=== PATIENT | male | born 1945 | race Caucasian/White ===

== ENCOUNTER 2020-03-26 09:35 | Emergency (ER) | payer MEDICARE, SELFPAY ==
--- NOTE | 2020-03-26 09:42 | W.ED.GENADLT ---
HPI - General Adult General: Chief complaint: Weakness Stated complaint: WEAKNESS; DIZZY Time Seen by Provider: 03/26/20 09:37 Source: patient Mode of arrival: EMS History of Present Illness: HPI narrative: 74-year-old male brought in by EMS with complaints of generalized weakness, dizziness, and decreased p.o. intake over the past 3 to 4 weeks. No fever or cough. She reports frequent vomiting, immediately after trying to eat anything. The only thing he can keep down, he says, is tiny amounts of banana/strawberry smoothie from [employer]. 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 Has had significant weight loss, records show loss of approximately 20kg in the past 4 months. Denies night sweats. No hematemesis. He does not think that food is getting stuck in his esophagus, but he does vomit almost immediately after trying to eat something, even though he continues to feel hungry all the time. He does experience heartburn and acid reflux, and during the night he has to wake up frequently because he is choking on his saliva. He does not he is concerned that he has Covid, and feels like he is dying . Associated symptoms: Reports malaise, nausea and vomiting; Deny chest pain Review of Systems General: Reports: 10 or more systems reviewed and unremarkable except in HPI and below Const: Reports: change in appetite, change in weight, fatigue and malaise; Denies: fever(s) or chills ENMT: Reports: hoarseness; Denies: odynophagia, mouth pain or oral sores Card: Reports: lightheadedness and acrocyanosis; Denies: chest pain or irregular heart rhythm Resp: Reports: productive cough; Denies: non-productive cough, wheezing, pain on inspiration, hemoptysis or chest congestion GI: Reports: abdominal pain, nausea, vomiting, dysphagia, heartburn and GI cramping; Denies: coffee ground emesis, diarrhea, constipation or bloating : Reports: oliguria Musc: Reports: extremity pain, muscle cramps, muscle weakness and decrease in muscle mass Skin/Breast: Reports: dry skin; Denies: erythema, sores, new lesions or non-healing lesions Neuro: Reports: numbness in extremities, difficulty walking, frequent falls and dizziness Psych: Reports: anxiety, depression, hopelessness and change in appetite Endo: Reports: tired all the time Marcelo/Lymph: Denies: easy bruising, easy bleeding, enlarged lymph nodes or tender lymph nodes All/Imm: Denies: throat swelling or tongue swelling Physical Exam Const: COMMON NORMALS: patient oriented x3 and alert GENERAL APPEARANCE: cooperative, anxious, ill appearing and frail appearing; not in distress NUTRITIONAL APPEARANCE: underweight ORIENTATION/CONSCIOUSNESS: Yes awake, Yes oriented to person, Yes oriented to place and Yes oriented to time HENMT: COMMON NORMALS: normocephalic and atraumatic HEAD & SCALP: normocephalic and atraumatic FACE & SINUS: normal facial exam and face symmetric Eye: COMMON NORMALS: Equal, round and reactive pupils present and EOMs intact bilaterally PUPIL: Yes Equal, round and reactive pupils present EOM: Yes EOM abnormal Neck/C-Spine: COMMON NORMALS: Thyroid normal GENERAL: Yes normal visual inspection, Yes trachea midline, No anterior neck swelling, No lymphadenopathy and No tender THYROID: Thyroid normal Lymph: LYMPHATIC: no lymphadenopathy noted Chest: CHEST: Yes abnormal inspection of the chest barrel chest, No mass, No tenderness, No Ecchymosis present and No Pacemaker present Resp: COMMON NORMALS: normal respiratory effort, No use of accessory muscles and clear to auscultation bilaterally EFFORT & INSPECTION: Yes able to speak in complete sentences, Yes symmetric chest movement, No tachypneic and No respiratory distress AUSCULTATION: clear to auscultation bilaterally Cardio: COMMON NORMALS: regular rate, regular rhythm, S1 normal heart sound present and S2 normal heart sound present JUGULAR VENOUS DISTENTION: no JVD RATE: regular rate RHYTHM: regular rhythm HEART SOUNDS: S1 normal heart sound present and S2 normal heart sound present BRUITS: no abdominal aortic bruits GI: COMMON NORMALS: Soft to palpation INSPECTION: Yes normal to inspection, No abdominal wall ecchymosis and No abdominal distension AUSCULTATION: Yes normoactive bowel sounds PALPATION: Yes Soft to palpation, Yes Tenderness to palpation present (GI) Details: LUQ and RUQ, No Guarding due to palpation present (GI), No Rigid due to palpation and No Ascites present Extremity: COMMON NORMALS: no pedal edema GENERAL: No calf tenderness, No carpopedal spasm and Yes pulses abnormal (diminished bilateral LE) Neuro: COMMON NORMALS: patient oriented x3 SENSORIUM/ORIENTATION: Yes oriented to person, Yes oriented to place and Yes oriented to time Course Vital Signs: Vital signs: Vital Signs Temperature 98.0 F 03/26/20 09:45 Pulse Rate 90 03/26/20 14:57 Respiratory Rate 20 H 03/26/20 14:57 Blood Pressure 137/78 03/26/20 14:57 Pulse Oximetry 100 03/26/20 14:57 MDM - General Adult MDM Narrative: Medical decision making narrative: 74-year-old male with progressive weight loss, difficulty swallowing solids and liquids over the past month. Able to tolerate secretions while sitting up, otherwise is ill-appearing and dehydrated. Mild leukocytosis Glucose elevated at 360, otherwise CMP without any other acute abnormalities. CT shows thickening of the distal esophagus and GE junction. Secretions in the esophagus consistent with dysphagia. Spoke with the on-call hospitalist here, Dr Fortune, she wanted me to check with the surgeon to see if inpatient endoscopy would be possible. I spoke with Dr. Jim, general surgeon, he recommended discussing the case with gastroenterology at a higher level of care, as he would not be able to perform esophageal dilation here if it were necessary. Called [facility] to request GI consult; Patient accepted at [facility], accepting physician Dr. Perry. We will proceed to arrange transfer by ground. Differential Diagnosis: Differential Diagnosis: Esophageal obstruction, neoplasm, ulcer, gastritis, dysphagia, achalasia, Medical Records: Attestation: I reviewed the patient's medical records. Lab Data: Attestation: I reviewed the patient's lab results. Labs: Lab Results 03/26/20 03/26/20 03/26/20 Range/Units 09:48 09:48 09:48 WBC 16.3 H (4.0-10.0) 10^3/ uL RBC 5.31 H (4.1-5.3) 10^6/u L Hgb 15.5 (11.7-16.6) g/dL Hct 46.7 (42.0-52.0) % MCV 87.9 (80-94) fL MCH 29.2 (28.0-34.0) pg MCHC 33.2 (30.0-36.0) g/dL RDW 12.1 (12.1-15.1) % Plt Count 212 (130-400) 10^3/c mm MPV 10.7 H (7.4-10.4) fL Neut % (Auto) 85.1 % Lymph % (Auto) 8.2 % [place] % (Auto) 5.3 % Eos % (Auto) 0.2 % Baso % (Auto) 0.3 % Neut # (Auto) 13.87 H (1.8-7.7) 10^3/u L Lymph # (Auto) 1.3 (0.8-4.8) 10^3/u L [place] # (Auto) 0.9 (0.2-0.9) 10^3/u L Eos # (Auto) 0.0 (0.0-0.8) 10^3/u L Baso # (Auto) 0.1 (0.0-0.1) 10^3/u L Nucleated RBC % (a uto) 0 % Nucleated RBCs # 0.0 /100WBC Sodium 135 L (136-145) mmol/L Potassium 4.7 (3.5-5.1) mmol/L Chloride 96 L (98-107) mmol/L Carbon Dioxide 27 (22-29) mmol/L Anion Gap 16.7 (5-19) BUN 18 (8-23) mg/dL Creatinine 0.8 (0.7-1.2) mg/dL GFR Calculation Not Reportable Glucose 360 H (65-115) mg/dL Calculated Osmolal ity 296 H (285-295) mOsm/k g Calcium 9.4 (8.5-10.5) mg/dL Magnesium 1.9 (1.7-2.3) mg/dL Total Bilirubin 0.9 (0.15-1.2) mg/dL AST 14 (0-40) U/L ALT 9 (0-41) U/L Alkaline Phosphata se 155 H (40-130) IU/L Troponin T Gen 5 n g/L 43 H (0-15) ng/L Total Protein 6.1 L (6.6-8.7) g/dL Albumin 3.6 (3.5-5.2) g/dL Globulin 2.5 (1.3-4.6) g/dL Urine Color (Yellow) Urine Appearance (CLEAR) Urine pH (5-7) Ur Specific Gravit y (1.005-1.030) Urine Protein (Negative) Urine Glucose (UA) (Normal) Urine Ketones (Negative) Urine Blood (Negative) Urine Nitrate (Negative) Urine Bilirubin (Negative) Urine Urobilinogen (Negative) mg/dL Ur Leukocyte Michelle ase (Negative) Urine RBC (0-2) /hpf Urine WBC (0-5) /hpf Ur Squamous Epith Cells (0-5) /hpf Amorphous Sediment /hpf Urine Bacteria (NONE) /hpf Hyaline Casts /lpf Urine Mucus /hpf Urine Sperm /hpf SARS-CoV-2 Ag (Rap id) (Negative) 03/26/20 03/26/20 Range/Units 11:00 12:25 WBC (4.0-10.0) 10^3/ uL RBC (4.1-5.3) 10^6/u L Hgb (11.7-16.6) g/dL Hct (42.0-52.0) % MCV (80-94) fL MCH (28.0-34.0) pg MCHC (30.0-36.0) g/dL RDW (12.1-15.1) % Plt Count (130-400) 10^3/c mm MPV (7.4-10.4) fL Neut % (Auto) % Lymph % (Auto) % [place] % (Auto) % Eos % (Auto) % Baso % (Auto) % Neut # (Auto) (1.8-7.7) 10^3/u L Lymph # (Auto) (0.8-4.8) 10^3/u L [place] # (Auto) (0.2-0.9) 10^3/u L Eos # (Auto) (0.0-0.8) 10^3/u L Baso # (Auto) (0.0-0.1) 10^3/u L Nucleated RBC % (a uto) % Nucleated RBCs # /100WBC Sodium (136-145) mmol/L Potassium (3.5-5.1) mmol/L Chloride (98-107) mmol/L Carbon Dioxide (22-29) mmol/L Anion Gap (5-19) BUN (8-23) mg/dL Creatinine (0.7-1.2) mg/dL GFR Calculation Glucose (65-115) mg/dL Calculated Osmolal ity (285-295) mOsm/k g Calcium (8.5-10.5) mg/dL Magnesium (1.7-2.3) mg/dL Total Bilirubin (0.15-1.2) mg/dL AST (0-40) U/L ALT (0-41) U/L Alkaline Phosphata se (40-130) IU/L Troponin T Gen 5 n g/L (0-15) ng/L Total Protein (6.6-8.7) g/dL Albumin (3.5-5.2) g/dL Globulin (1.3-4.6) g/dL Urine Color Straw (Yellow) Urine Appearance Clear (CLEAR) Urine pH 5 (5-7) Ur Specific Gravit y 1.015 (1.005-1.030) Urine Protein Trace (Negative) Urine Glucose (UA) 4+ H (Normal) Urine Ketones 1+ H (Negative) Urine Blood 2+ H (Negative) Urine Nitrate Negative (Negative) Urine Bilirubin Neg (Negative) Urine Urobilinogen Norm (Negative) mg/dL Ur Leukocyte Michelle ase Negative (Negative) Urine RBC 0-4 H (0-2) /hpf Urine WBC None (0-5) /hpf Ur Squamous Epith Cells Rare (0-5) /hpf Amorphous Sediment 1+ /hpf Urine Bacteria Trace (NONE) /hpf Hyaline Casts 5-10 H /lpf Urine Mucus 1+ /hpf Urine Sperm 1+ /hpf SARS-CoV-2 Ag (Rap id) Negative (Negative) EKG Data^: EKG 1: Attestation: I personally reviewed and interpreted this EKG as follows: EKG interpretation date: 03/26/20 EKG interpretation time: 10:15 Prior EKG tracings: not available for review Interpretation: Sinus rhythm, rate 83 CT 190, QRS 147, QTc 421 Right axis deviation Right bundle branch block No acute ST segment elevation or depression. Computer generated interpretation: Chest X-Ray 03/26/20 10:00 IMPRESSION: No evidence for acute cardiopulmonary disease. Chest/Abdomen/Pelvis CT 03/26/20 10:32 IMPRESSION: Colonic constipation is present. COMMENTS: Consistent with the [employer]'s Incidental Findings Committee white paper (J Am Liat Radiol 2018): Any incidental renal lesion less than 1 cm or classified as too small to characterize, or any incidental cystic renal lesion characterized as simple-appearing, is likely benign. No follow-up imaging is recommended for these lesions per consensus recommendations based on imaging criteria. Radiation Dose CTDIVOL = (mGy): DLP = 1050.64~1050.64 (mGy-cm) Discharge Plan Discharge Patient Disposition: er Intermediate Care Fac Clinical Impression: Esophageal abnormality, Obstruction, esophagus, Dehydration determined by examination, Excessive weight loss Malnutrition Qualifiers: Malnutrition type: protein-calorie malnutrition Protein-calorie malnutrition severity: moderate Qualified Code(s): E44.0 - Moderate protein-calorie malnutrition Condition: Stable Prescriptions: No Action No Known Home Medications RF: 0 Discharge Orders: Transfer Out of Facility (Order); Ordered 03/26/20 Ordered By: Eva Reeves Referrals: Gosia Hubbard DO [Primary Care Provider] - Coding Level of Care Code ED Cleaner And Trimmer for Chg Fwd Exam Comprehensive
--- NOTE | 2020-03-26 09:44 | ECG_ITS ---
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 Measurements Intervals [place] Rate: 83 P: 63 ND: 190 QRS: 112 QRSD: 147 T: 76 QT: 381 QTc: 449 Interpretive Statements SINUS RHYTHM RIGHT BUNDLE BRANCH BLOCK [120+ ms QRS DURATION, UPRIGHT V1, 40+ ms S IN I/aVL/V4/V5/V6] LEFT POSTERIOR FASCICULAR BLOCK [QRS AXIS > 109, INFERIOR Q] No previous ECG available for comparison Electronically Signed On 03-27-2020 16:55:24 [employer] by Jose Alvarenga M.D. [id number]
[2020-03-26 09:45] VITALS: BP 136/66; PULSE 91; RESP 18; TEMP 36.7; O2SAT 100; BMI 16.2
[2020-03-26 09:59] LABS: Basophils # 0.1 10^3/uL (0.0-0.1); Basophils % 0.3 %; Eosinophils % 0.2 %; Hematocrit 46.7 % (42.0-52.0); Hemoglobin 15.5 g/dL (11.7-16.6); Lymphocytes # 1.3 10^3/uL (0.8-4.8); Lymphocytes % 8.2 %; Mean Corpuscular HGB Conc 33.2 g/dL (30.0-36.0); Mean Corpuscular Hemoglobin 29.2 pg (28.0-34.0); Mean Corpuscular Volume 87.9 fL (80-94); Mean Platelet Volume 10.7 fL (7.4-10.4); Monocytes # 0.9 10^3/uL (0.2-0.9); Monocytes % 5.3 %; Neutrophils # 13.87 10^3/uL (1.8-7.7); Neutrophils % 85.1 %; Nucleated Red Blood Cells % 0 %; Platelet Count 212 10^3/cmm (130-400); Red Blood Count 5.31 10^6/uL (4.1-5.3); Red Cell Distribution Width 12.1 % (12.1-15.1); White Blood Count 16.3 10^3/uL (4.0-10.0)
--- NOTE | 2020-03-26 10:00 | XRR_ITS ---
PROCEDURE INFORMATION: Exam: XR Chest, 1 View Exam date and time: 03/26/2020 10:01 AM Age: 74 years old Clinical indication: Other: Weight loss; Additional info: Weight loss, dizzy TECHNIQUE: Imaging protocol: XR of the chest Views: 1 view. COMPARISON: No relevant prior studies available. FINDINGS: Lungs: There are pulmonary parenchymal calcifications consistent with remote granulomatous organism exposure. Pleural space: Unremarkable. No pleural effusion. No pneumothorax. Heart/Mediastinum: Unremarkable. No cardiomegaly. Bones/joints: Generalized osteopenia. XR/XR chest 1V portable [id number] IMPRESSION: No evidence for acute cardiopulmonary disease.
[2020-03-26] MEDS: lactated ringers 1,000 ML 999 ML IV (10:04)
[2020-03-26 10:24] LABS: Alanine Aminotransferase 9 U/L (0-41); Albumin Level 3.6 g/dL (3.5-5.2); Alkaline Phosphatase 155 IU/L (40-130); Anion Gap 16.7 (5-19); Aspartate Amino Transferase 14 U/L (0-40); Blood Urea Nitrogen 18 mg/dL (8-23); Calcium 9.4 mg/dL (8.5-10.5); Carbon Dioxide 27 mmol/L (22-29); Chloride 96 mmol/L (98-107); Globulin 2.5 g/dL (1.3-4.6); Glucose 360 mg/dL (65-115); Magnesium 1.9 mg/dL (1.7-2.3); Osmolality Calculated 296 mOsm/kg (285-295); Potassium 4.7 mmol/L (3.5-5.1); Sodium 135 mmol/L (136-145); Total Bilirubin 0.9 mg/dL (0.15-1.2); Total Protein 6.1 g/dL (6.6-8.7)
[2020-03-26 10:26] LABS: Troponin T (5th) Once 43 ng/L (0-15)
--- NOTE | 2020-03-26 10:32 | CTR_ITS ---
PROCEDURE INFORMATION: Exam: CT Chest With Contrast; Diagnostic Exam date and time: 03/26/2020 11:12 AM Age: 74 years old Clinical indication: Abdominal pain; Additional info: Weight loss, dysphagia, vomiting, abdominal pain TECHNIQUE: Imaging protocol: Diagnostic computed tomography of the chest with intravenous contrast. Radiation optimization: All CT scans at this facility use at least one of these dose optimization techniques: automated exposure control; mA and/or kV adjustment per patient size (includes targeted exams where dose is matched to clinical indication); or iterative reconstruction. Contrast material: OMNI 300; Contrast volume: 95 ml; Contrast route: INTRAVENOUS (IV); COMPARISON: CR (CHEST, ) 03/26/2020 10:14 AM RADIATION DOSE METRICS: Total DLP (mGy-cm): 1050.64 FINDINGS: Thyroid: There are heterogeneous lesions with calcifications in the bilateral thyroid lobes the larger of which is in the left thyroid lobe measuring 2.6 cm in AP dimension. Lungs: There are pulmonary parenchymal calcifications consistent with remote granulomatous organism exposure. Pleural space: Unremarkable. No pneumothorax. No pleural effusion. Heart: Unremarkable. No cardiomegaly. No pericardial effusion. Mediastinal space: There is mucosal thickening of the distal esophagus and gastroesophageal junction. Secretions are present in the esophagus consistent with dysphagia. Aorta: Unremarkable. No aortic aneurysm. Lymph nodes: Unremarkable. No enlarged lymph nodes. Bones/joints: There are degenerative changes in the visualized spine. Generalized osteopenia. Soft tissues: There are benign-appearing soft tissue calcifications. IMPRESSION: 1. There is mucosal thickening of the distal esophagus and gastroesophageal junction. Differential includes esophagitis/gastritis versus neoplasm. Secretions are present in the esophagus consistent with dysphagia. 2. Generalized osteopenia. COMMENTS: Consistent with the [employer]'s Incidental Findings Committee white paper (J Am Liat Radiol 2015): In patients aged 35 years and older with an incidental thyroid nodule equal to or greater than 1.[address], MRI or extrathyroidal US, further evaluation with dedicated thyroid US is recommended for patients with normal life expectancy and without comorbidities. For smaller nodules without suspicious features, no further evaluation or follow up is recommended. PROCEDURE INFORMATION: Exam: CT Abdomen And Pelvis With Contrast Exam date and time: 03/26/2020 11:12 AM Age: 74 years old Clinical indication: Abdominal pain; Additional info: Weight loss, dysphagia, vomiting, abdominal pain TECHNIQUE: Imaging protocol: Computed tomography of the abdomen and pelvis with intravenous contrast. Radiation optimization: All CT scans at this facility use at least one of these dose optimization techniques: automated exposure control; mA and/or kV adjustment per patient size (includes targeted exams where dose is matched to clinical indication); or iterative reconstruction. Contrast material: OMNI 300; Contrast volume: 95 ml; Contrast route: INTRAVENOUS (IV); COMPARISON: CR (CHEST, ) 03/26/2020 10:14 AM RADIATION DOSE METRICS: Total DLP (mGy-cm): 1050.64 FINDINGS: Mediastinal space: There is mucosal thickening of the distal esophagus and gastroesophageal junction. Liver: Incidental splenic and hepatic calcified granulomata. Gallbladder and bile ducts: Normal. No calcified stones. No ductal dilation. Pancreas: Normal. No ductal dilation. Spleen: Normal. No splenomegaly. Adrenal glands: Normal. No mass. Kidneys and ureters: 19 mm right renal cyst has benign features. Follow-up is not necessary. Stomach and bowel: Colonic constipation is present. Appendix: A normal appendix is identified. Intraperitoneal space: Unremarkable. No free air. No significant fluid collection. Vasculature: Calcified plaque is present within multiple vascular structures. Lymph nodes: Unremarkable. No enlarged lymph nodes. Urinary bladder: Unremarkable as visualized. Reproductive: Unremarkable as visualized. Bones/joints: Chronic defects are present through the bilateral L5 pars interarticularis. Grade 1 spondylolisthesis at L5-S1. Multilevel lumbar disc bulges contribute to canal and bilateral neural foraminal narrowing. Mild upper lumbar dextroscoliosis. There are degenerative changes across the hip joints. Soft tissues: Unremarkable. CT/CT chest abd pel w con* IMPRESSION: Colonic constipation is present. COMMENTS: Consistent with the [employer]'s Incidental Findings Committee white paper (J Am Liat Radiol 2018): Any incidental renal lesion less than 1 cm or classified as too small to characterize, or any incidental cystic renal lesion characterized as simple-appearing, is likely benign. No follow-up imaging is recommended for these lesions per consensus recommendations based on imaging criteria. Radiation Dose CTDIVOL = (mGy): DLP = 1050.64~1050.64 (mGy-cm)
[2020-03-26 11:01] VITALS: BP 163/79; PULSE 95; RESP 16; O2SAT 100
[2020-03-26] MEDS: iohexol 300 mg/mL 100 mL Btl IV (11:13)
[2020-03-26 11:26] LABS: Bilirubin Urine Neg (Negative); Blood Urine 2+ (Negative); Glucose Urine UA 4+ (Normal); Ketones Urine 1+ (Negative); Leukocyte Esterase Urine Negative (Negative); Nitrate Urine Negative (Negative); Protein Urine Trace (Negative); Specific Gravity, Urine 1.015 (1.005-1.030); Urine Appearance Clear (CLEAR); Urine Color Straw (Yellow); Urobilinogen Urine Norm (Negative); pH Urine 5 (5-7)
[2020-03-26 11:36] LABS: Amorphous Sediment Urine 1+ /hpf; Bacteria Urine TRACE /hpf; Mucus Urine 1+ /hpf; RBC Urine 0-4 /hpf (0-2); Sperm Urine 1+ /hpf; Squamous Epithelial Cell Urine RARE /hpf (0-5)
[2020-03-26 11:38] LABS: Add Urine Culture? No
[2020-03-26 12:00] VITALS: BP 171/100; PULSE 90; RESP 16; O2SAT 98
--- NOTE | 2020-03-26 12:17 | ECG_ITS ---
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 Measurements Intervals [place] Rate: 62 P: 85 MT: 106 QRS: 67 QRSD: 85 T: 63 QT: 450 QTc: 458 Interpretive Statements SINUS RHYTHM WITH MARKED SINUS ARRHYTHMIA WITH SHORT MT INTERVAL SEPTAL MYOCARDIAL INFARCTION , OF INDETERMINATE AGE [40+ ms Q WAVE IN V1/V2] No previous ECG available for comparison Electronically Signed On 03-27-2020 16:55:14 [employer] by Jose Alvarenga M.D. [id number]
[2020-03-26] MEDS: pantoprazole 40 MG in sodium chloride 0.9% (plus) 100 ML 20 MG IV (12:36)
[2020-03-26 12:40] VITALS: BP 157/68; PULSE 75; RESP 16; O2SAT 95
[2020-03-26 12:57] LABS: SARS Covid-2 Antigen Negative (Negative)
[2020-03-26 14:57] VITALS: BP 137/78; PULSE 90; RESP 20; O2SAT 100
[2020-03-26 15:53] LABS: Troponin T (5th) Once 37 ng/L (0-15)
[2020-03-26 16:41] VITALS: BP 137/78; PULSE 90; RESP 20; O2SAT 100
== END 2020-03-26 16:42 | disposition intermediate care facility (04) ==
PROVIDERS: Emergency Provider Family Medicine; PCP Family Medicine
DX: E44.0 Moderate protein-calorie malnutrition (principal); K22.2 Esophageal obstruction; E86.0 Dehydration; R63.4 Abnormal weight loss
CPT/HCPCS: 12345; 36415; 51701; 71045; 71260; 74177; 80053; 81001; 83735; 84484; 85025; 87426; 93005; 96365; 96366; 99282; 99285; C9113; Q9967

== ENCOUNTER → 2020-09-13 13:58 | Outpatient (BNVA) | payer OTHER, SELFPAY | PROVIDERS: PCP Family Medicine; Referring Provider Emergency Medicine Emergency Medical Services; Visit Provider Urology | DX: R97.20 Elevated prostate specific antigen [PSA] (principal) | CPT/HCPCS: 84153 ==

== ENCOUNTER 2020-10-25 12:24 | Emergency (ER) | payer OTHER, SELFPAY ==
[2020-10-25 13:27] VITALS: BP 91/60; PULSE 98; RESP 18; TEMP 36.3; O2SAT 99; BMI 20.3
--- NOTE | 2020-10-25 20:29 | ED_ITS ---
HPI - General Adult General: Chief complaint: General Medical Stated complaint: THROAT PAIN Time Seen by Provider: 10/25/20 20:14 History of Present Illness: HPI narrative: Patient is a 74-year-old male comes to the ED with throat pain. Patient says he has a history of esophageal varices that were repaired a few years ago. He says he has been having the symptoms for the past couple years. Denies a sore throat or pain when he swallows. He states he is able to eat and drink, but sometimes he has some nausea and vomiting. He also reports that he feels like some times when he eats something to get stuck down in his esophagus. He denies any bloody cough or bloody emesis. He takes famotidine to help with his acid reflux. Associated symptoms: Deny chest pain, dyspnea, headache(s), nausea, rash, palpitations or vomiting Review of Systems Const: Denies: fever(s), chills or fatigue Eyes: Denies: change in vision or eye discomfort ENMT: Reports: throat pain; Denies: odynophagia, nasal discharge or nasal congestion Card: Denies: chest pain, palpitations, edema, swelling of feet/ankles, dyspnea on exertion or orthopnea Resp: Denies: dyspnea, productive cough or non-productive cough GI: Reports: heartburn; Denies: abdominal pain, nausea, vomiting, diarrhea, constipation or hematochezia : Denies: flank pain, difficulty urinating, dysuria or hematuria Musc: Denies: neck pain, back pain or extremity swelling Skin/Breast: Denies: rash or new lesions Neuro: Denies: headache(s), numbness in extremities or weakness in extremities PFS ED PFSH: Medical History Elevated PSA Family History Father , AT AGE 90 CHF (congestive heart failure) Mother , AT AGE 78 CHF (congestive heart failure) Cancer Social History Smoking and tobacco status: former smoker Alcohol intake: never Marital status: Current occupational status: retired History of recent travel: No Physical Exam Const: COMMON NORMALS: no acute distress, patient oriented x3 and alert GENERAL APPEARANCE: cooperative and comfortable HENMT: COMMON NORMALS: normocephalic HEAD & SCALP: normocephalic MOUTH: Normal oral and palatal mucosa present THROAT: posterior oropharynx normal and uvula midline Neck/C-Spine: COMMON NORMALS: supple GENERAL: Yes normal visual inspection Resp: COMMON NORMALS: normal respiratory effort, No retractions, No use of accessory muscles and clear to auscultation bilaterally EFFORT & INSPECTION: Yes able to speak in complete sentences, No tachypneic, No respiratory distress and No labored AUSCULTATION: clear to auscultation bilaterally Cardio: COMMON NORMALS: regular rate, regular rhythm, S1 normal heart sound present, S2 normal heart sound present, No gallops present (Cardio), No clicks present (Cardio), No murmurs present (Cardio) and Peripheral pulses 2+ throughout RATE: regular rate RHYTHM: regular rhythm HEART SOUNDS: S1 normal heart sound present and S2 normal heart sound present PERIPHERAL PULSES: Peripheral pulses 2+ throughout GI: COMMON NORMALS: Normal to inspection, nondistended, normoactive bowel sounds present, Soft to palpation, non-tender and no masses PALPATION: Yes Soft to palpation : COMMON NORMALS: Yes no CVA tenderness BLADDER/KIDNEY EXAM: Yes no CVA tenderness Back/Pelvis: COMMON NORMALS: no CVA tenderness Extremity: COMMON NORMALS: normal to inspection Neuro: COMMON NORMALS: patient oriented x3 and moves all extremities SENSORIUM/ORIENTATION: Yes alert Skin: GENERAL SKIN EXAM: dry skin Course Vital Signs: Vital signs: Vital Signs Temperature 97.3 F L 10/25/20 13:27 Pulse Rate 77 10/25/20 22:54 Respiratory Rate 17 10/25/20 22:54 Blood Pressure 91/60 10/25/20 13:27 Pulse Oximetry 95 10/25/20 22:54 MDM - General Adult MDM Narrative: Medical decision making narrative: Patient is a 74-year-old male comes to the ED with acid reflux symptoms. He currently takes famotidine. He says that he feels like he might have something stuck in his esophagus. Patient is able to drink and keep fluids down. He says he has some occasional nausea and emesis. Patient is nontoxic appearing and is in no acute distress. His lungs are clear to all station bilaterally. Chest x-ray showed no acute findings. Patient was diagnosed with acid reflux disease and discharged home with a prescription for Zofran to help with his occasional nausea. I told the continue taking his famotidine for his acid reflux. I told him to contact his PCP tomorrow to set up an appointment with them to be seen in the next 5 to 7 days. Return to ED precautions given. Patient understood and agree with plan. Imaging Data^: CXR: Attestation: I personally reviewed and interpreted this imaging study as follows: Radiologist's impression: [address] [address] XRay Report Signed Patient: Jcarlos Mcgill Unit #: [id number] : 1945 Age/Sex: 74 / M ADM Date: 10/25/20 Loc: ER Room/Bed: Attending Dr: Ordering Provider/Ordering MD: Gerald Chowdhury Date of Service: 10/25/20 Procedure(s): XR chest 1V portable 22532 Accession Number(s): [id number] Report Number: [id number] PROCEDURE INFORMATION: Exam: XR Chest Exam date and time: 10/25/2020 8:28 PM Age: 74 years old Clinical indication: Other: Trouble swallowing; Patient HX: HX esophageal varices; Additional info: Feels like something is stuck in esophagus TECHNIQUE: Imaging protocol: XR of the chest. Views: 1 view. COMPARISON: CT chest abd pel w con* 03/26/2020 11:03 AM FINDINGS: Lungs: No airspace consolidation. Left upper lobe calcified granuloma. Mildly decreased lung volumes. Negative for vascular dilation. Pleural spaces: Unremarkable. No pleural effusion. No pneumothorax. Heart/Mediastinum: Unremarkable. No cardiomegaly. Bones/joints: Unremarkable. XR/XR chest 1V portable [id number] IMPRESSION: No focal acute pulmonary disease. Dictated By: Porter Anders Signed By: Porter Anders Signed Date/Time: 10/25/202126 DD/ 25 Discharge Plan Discharge Patient Disposition: Home Clinical Impression: Acid reflux disease Qualifiers: Esophagitis presence: esophagitis presence not specified Qualified Code(s): K21.9 - Gastro-esophageal reflux disease without esophagitis Condition: Stable Prescriptions: New ondansetron 4 mg tablet,disintegrating 4 mg PO Q8H PRN (Reason: nausea and vomiting) Qty: 15 RF: 0 No Action metformin 1,000 mg tablet 1,000 mg PO BID RF: 0 acetaminophen [Tylenol Extra Strength] 500 mg tablet 500 mg PO Q6H PRNRF: 0 famotidine 20 mg tablet 20 mg PO BID RF: 0 cholecalciferol (vitamin D3) 25 mcg (1,000 unit) capsule 25 mcg PO DAILY RF: 0 (DME) cbd oil See Rx Instructions .ROUTE .MEDSUPPLY RF: 0 Discharge Orders: Discharge ED (Routine); Ordered 10/25/20 Ordered By: Gerald Chowdhury Referrals: Gosia Hubbard DO [Primary Care Provider] - Discharge Diet: Regular Discharge Activity: Resume usual activity Patient Instructions: Gastroesophageal Reflux Disease (ED) Activity Restrictions/Additional Instructions: Follow-up with your PCP in 7 to 10 days for reevaluation. Take medications as prescribed. Return to the ER or your medical provider if condition worsens. Please read and understand discharge instructions. Thank you for choosing [facility] for your healthcare needs today. Please realize this is an emergency room and that we are providing you with a medical screening exam and this may not be complete and all inclusive of all the testing and or work up that you may need to determine your ailment or severity of your illness. It is very important that you follow up as instructed or that you return to the Emergency Department should you have concerns or if your condition changes or worsens in any way. Coding Level of Care Code ED Breed To [employer] Production Technician for Edy Daley Exam Comprehensive
[2020-10-25 22:54] VITALS: PULSE 77; RESP 17; O2SAT 95
== END 2020-10-25 22:55 | disposition home or self-care (01) ==
PROVIDERS: Emergency Provider Physician Assistant; PCP Family Medicine
DX: K21.9 Gastro-esophageal reflux disease without esophagitis (principal); Z87.891 Personal history of nicotine dependence
CPT/HCPCS: 71045; 99283